=== PATIENT | male | born 1980 | race Caucasian/White ===

== ENCOUNTER 2021-09-04 13:06 | Emergency (ER) | payer OTHER, SELFPAY ==
[2021-09-04 13:38] VITALS: BP 158/99; PULSE 84; RESP 16; TEMP 36.9; O2SAT 97; BMI 28.7
--- NOTE | 2021-09-04 15:11 | ED_ITS ---
HPI - Wound/Laceration General: Chief Complaint: Wound/Laceration Stated Complaint: pain on bottom Time Seen by Provider: 09/04/21 15:02 Source: patient Mode of arrival: ambulatory Limitations: no limitations History of Present Illness: 41-year-old male presents to the ER today for a sore area on his buttocks. Patient reports this has been there for about a week. He has had this in the past and it looked like a pimple, but this time it is just very tender. Patient reports he is currently on clindamycin for another infection. He has never had this looked at before as he thought it would just go away. Patient reports is very tender to sit on in the area feels swollen. Review of Systems General: Reports: 10 or more systems reviewed and unremarkable except in HPI and below Skin/Breast: Reports: other (Area on blood at the top of the gluteal cleft is painful) Physical Exam Const: COMMON NORMALS: no acute distress, average body habitus and patient oriented x3 Resp: COMMON NORMALS: normal respiratory effort and clear to auscultation bilaterally EFFORT & INSPECTION: Yes able to speak in complete sentences AUSCULTATION: clear to auscultation bilaterally Cardio: COMMON NORMALS: regular rate, regular rhythm and No murmurs present (Cardio) RATE: regular rate RHYTHM: regular rhythm : OTHER: Patient has an area of induration at the superior portion of the gluteal cleft. There is no open or draining wound. No fluctuance is noted. Minimal erythema is noted. Back/Pelvis: OTHER: See note for buttock exam Extremity: COMMON NORMALS: normal to inspection and full ROM Neuro: COMMON NORMALS: patient oriented x3 Psych: COMMON NORMALS: mental status grossly normal, Normal thought process present, cooperative and normal affect THOUGHT PROCESS: Normal thought process present Skin: OTHER: Probable pilonidal cyst/perirectal abscess noted to superior gluteal cleft. This is not superficial at this time. Nothing is open or draining at this time. Course ED course: Patient presents to the ER today with a probable abscess of the gluteal cleft. On exam this does not appear abscess however there is an area of tenderness at the superior gluteal cleft. Likely this is an early abscess. Patient is currently taking clindamycin which is an appropriate treatment for this. No imaging is necessary at this time. Blood work was canceled as patient is currently on antibiotics and there does not appear to be systemic infection. Vital Signs: Vital signs: Vital Signs Temperature 98.5 F 09/04/21 13:38 Pulse Rate 84 09/04/21 13:38 Respiratory Rate 16 09/04/21 13:38 Blood Pressure 158/99 09/04/21 13:38 Pulse Oximetry 97 09/04/21 13:38 MDM - Wound/Laceration Medical Decision Making 41-year-old male presents to the ER today for possible gluteal abscess. Patient reports this has been there before and came up as a pimple however this time it is just very very tender for the last 1 week. Patient denies it being open or draining at this time. He reports that it hurts to sit on his butt. He denies any redness or drainage. Patient is currently taking clindamycin for another infection. This would be an appropriate treatment for a perirectal abscess or a pilonidal cyst. I discussed with patient likely this is to be an issue that will continue to recur. I would recommend referral to a surgeon to discuss removal as this is multiple occasions of this pain. He should continue the clindamycin and finish it. Warm baths recommended along with warm compresses. Ibuprofen or anti-inflammatory for pain. Follow-up with PCP or surgeon in 7 to 10 days. Case management was consulted regarding this patient. Return to the ER with new or worsening symptoms. Patient verbalized understanding and is in agreement with the treatment plan. Discharge Plan Discharge Patient Disposition: Home Clinical Impression: Chronic recurrent pilonidal cyst Condition: Stable Prescriptions: New ketorolac 10 mg tablet 10 mg PO Q8H PRN (Reason: pain) 3 Days Qty: 12 0RF Discharge Orders: Discharge ED (Routine); Ordered 09/04/21 Ordered By: Meka Desai Referrals: Vernon Singh MD [Primary Care Provider] - Discharge Diet: Usual diet Discharge Activity: Resume usual activity Patient Instructions: Opioid Safety Activity Restrictions/Additional Instructions: Finish antibiotics as previously prescribed. Warm compresses recommended. Take ketorolac for pain but do not take another NSAID such as ibuprofen with it. Okay to take Tylenol. Follow-up with surgeon or PCP as discussed. Return to the ER with new or worsening symptoms. Coding Level of Care Code ED Prop Cutter for Dom Cristina
[2021-09-04 15:27] VITALS: BP 140/96; PULSE 81; RESP 13; TEMP 36.7; O2SAT 97
[2021-09-04 15:29] VITALS: BP 140/96; PULSE 81; RESP 13; TEMP 36.7; O2SAT 97
--- NOTE | 2021-09-07 16:08 | DCPLANNER ---
Addendum entered by Marie Paula 10/23/21 18:49: This appointment was cancelled. Addendum entered by Marie Paula 10/01/21 10:03: Patient has a follow up appointment scheduled for Saturday, October 09, [address] at 1:[address] Rosenbaum. Clinic will call patient with appointment information. Original Note: concierge manager had message to schedule a follow up appointment for patient with general surgery. concierge manager sent patients information to the general surgery front staff for review. Patients information will be printed and reviewed. Clinic will call patient with appointment information.
== END 2021-09-04 15:30 | disposition home or self-care (01) ==
PROVIDERS: Emergency Provider Physician Assistant; PCP Specialist
DX: L05.91 Pilonidal cyst without abscess (principal)
CPT/HCPCS: 99281

== ENCOUNTER 2023-07-22 17:20 | Outpatient (CLI) | payer OTHER, SELFPAY ==
[2023-07-22 17:46] LABS: Basophils # 0.1 10^3/uL (0.0-0.1); Eosinophils # 0.3 10^3/uL (0.0-0.8); Eosinophils % 4.2 %; Hematocrit 40.1 % (37-53); Lymphocytes # 1.9 10^3/uL (0.8-4.8); Lymphocytes % 31.3 %; Mean Corpuscular HGB Conc 33.9 g/dL (30-55); Mean Corpuscular Hemoglobin 28.4 pg (27-33); Mean Corpuscular Volume 83.7 fl (82-101); Mean Platelet Volume 11.9 fL (7.4-10.4); Monocytes # 0.5 10^3/uL (0.2-0.9); Monocytes % 7.6 %; Neutrophils # 3.44 10^3/uL (1.8-7.7); Neutrophils % 55.7 %; Nucleated Red Blood Cells % 0 %; Platelet Count 261 10^3/cmm (157-399); Red Blood Count 4.79 10^6/uL (3.85-5.65); Red Cell Distribution Width 14.1 % (12.1-15.1); White Blood Count 6.17 10^3/uL (3.29-11.43)
[2023-07-22 18:04] LABS: Alanine Aminotransferase 28 U/L (0-41); Albumin Level 4.1 g/dL (3.5-5.2); Alkaline Phosphatase 181 U/L (40-130); Anion Gap 17.8 (5-19); Aspartate Amino Transferase 22 U/L (0-40); Blood Urea Nitrogen 13 mg/dL (6-20); Carbon Dioxide 24 mmol/L (22-29); Chloride 100 mmol/L (98-107); Globulin 3.2 g/dL (1.3-4.6); Glomerular Filtration Rate 123.7 mL/min (90-130); Glucose 80 mg/dL (65-115); Osmolality Calculated 285 mOsm/kg (285-295); Potassium 3.8 mmol/L (3.5-5.1); Sodium 138 mmol/L (136-145); Total Bilirubin 0.3 mg/dL (0.15-1.2); Total Protein 7.3 g/dL (6.6-8.7)
== END 2023-07-22 17:21 | disposition home or self-care (01) ==
LOC: LAB 17:25
PROVIDERS: PCP Specialist; Visit Provider Family Medicine
DX: M86.662 Other chronic osteomyelitis, left tibia and fibula (principal)
CPT/HCPCS: 80053; 85025; 86140

== ENCOUNTER 2023-07-29 13:43 | Outpatient (CLI) | payer OTHER, SELFPAY ==
[2023-07-29 14:06] LABS: Basophils # 0.1 10^3/uL (0.0-0.1); Eosinophils # 0.2 10^3/uL (0.0-0.8); Eosinophils % 3.1 %; Hematocrit 41.2 % (37-53); Lymphocytes # 1.5 10^3/uL (0.8-4.8); Lymphocytes % 24.8 %; Mean Corpuscular HGB Conc 33.3 g/dL (30-55); Mean Corpuscular Hemoglobin 28.2 pg (27-33); Mean Corpuscular Volume 84.9 fl (82-101); Mean Platelet Volume 10.6 fL (7.4-10.4); Monocytes # 0.5 10^3/uL (0.2-0.9); Monocytes % 7.7 %; Neutrophils # 3.92 10^3/uL (1.8-7.7); Neutrophils % 63.2 %; Nucleated Red Blood Cells % 0 %; Platelet Count 271 10^3/cmm (157-399); Red Blood Count 4.85 10^6/uL (3.85-5.65); Red Cell Distribution Width 14.4 % (12.1-15.1)
[2023-07-29 14:22] LABS: Alanine Aminotransferase 30 U/L (0-41); Alkaline Phosphatase 162 U/L (40-130); Anion Gap 12.9 (5-19); Aspartate Amino Transferase 18 U/L (0-40); Blood Urea Nitrogen 13 mg/dL (6-20); Calcium 8.6 mg/dL (8.5-10.5); Carbon Dioxide 26 mmol/L (22-29); Chloride 101 mmol/L (98-107); Globulin 3.1 g/dL (1.3-4.6); Glomerular Filtration Rate 123.7 mL/min (90-130); Glucose 90 mg/dL (65-115); Osmolality Calculated 282 mOsm/kg (285-295); Potassium 3.9 mmol/L (3.5-5.1); Sodium 136 mmol/L (136-145); Total Bilirubin 0.2 mg/dL (0.15-1.2); Total Protein 7.1 g/dL (6.6-8.7)
== END 2023-07-29 13:44 | disposition home or self-care (01) ==
LOC: LAB 13:44
PROVIDERS: PCP Specialist; Visit Provider Family Medicine
DX: S82.872D Displaced pilon fracture of left tibia, subsequent encounter for closed fracture with routine healing (principal); A49.8 Other bacterial infections of unspecified site; M86.10 Other acute osteomyelitis, unspecified site
CPT/HCPCS: 80053; 85025; 86140

== ENCOUNTER 2023-08-05 11:07 | Outpatient (CLI) | payer OTHER, SELFPAY ==
[2023-08-05 11:19] LABS: Basophils # 0.1 10^3/uL (0.0-0.1); Basophils % 0.7 %; Eosinophils # 0.2 10^3/uL (0.0-0.8); Eosinophils % 2.3 %; Hematocrit 41.5 % (37-53); Lymphocytes # 1.7 10^3/uL (0.8-4.8); Lymphocytes % 24.2 %; Mean Corpuscular HGB Conc 33.5 g/dL (30-55); Mean Corpuscular Hemoglobin 28.5 pg (27-33); Mean Platelet Volume 10.6 fL (7.4-10.4); Monocytes # 0.4 10^3/uL (0.2-0.9); Monocytes % 5.9 %; Neutrophils # 4.74 10^3/uL (1.8-7.7); Neutrophils % 66.8 %; Nucleated Red Blood Cells % 0 %; Platelet Count 327 10^3/cmm (157-399); Red Blood Count 4.88 10^6/uL (3.85-5.65); Red Cell Distribution Width 14.6 % (12.1-15.1)
[2023-08-05 11:33] LABS: Alanine Aminotransferase 24 U/L (0-41); Albumin Level 4.1 g/dL (3.5-5.2); Alkaline Phosphatase 162 U/L (40-130); Anion Gap 15.3 (5-19); Aspartate Amino Transferase 19 U/L (0-40); Blood Urea Nitrogen 9 mg/dL (6-20); Calcium 8.9 mg/dL (8.5-10.5); Carbon Dioxide 25 mmol/L (22-29); Chloride 103 mmol/L (98-107); Globulin 2.9 g/dL (1.3-4.6); Glomerular Filtration Rate 123.7 mL/min (90-130); Glucose 81 mg/dL (65-115); Osmolality Calculated 286 mOsm/kg (285-295); Potassium 4.3 mmol/L (3.5-5.1); Sodium 139 mmol/L (136-145); Total Bilirubin 0.2 mg/dL (0.15-1.2)
== END 2023-08-05 11:08 | disposition home or self-care (01) ==
PROVIDERS: PCP Specialist; Visit Provider Family Medicine
DX: S82.872D Displaced pilon fracture of left tibia, subsequent encounter for closed fracture with routine healing (principal); A49.8 Other bacterial infections of unspecified site; X58.XXXD Exposure to other specified factors, subsequent encounter
CPT/HCPCS: 80053; 85025; 86140